=== PATIENT | male | born 2000 ===

== ENCOUNTER 2019-03-28 14:27 | Inpatient (IN) | payer OTHER ==
[~2019-03-28] VITALS: Ht 175 cm; Wt 59.0 kg
[2019-03-28] MEDS ORDERED: TETANUS,DIPTH,PERTUSS P/F (BOOSTRIX) 0.5 ML VIAL IM ONE ×2 (14:42→14:45)
[2019-03-28] MEDS ORDERED: fentaNYL INJECTION 100 MCG/2 ML AMP ONE (14:43)
[2019-03-28] MEDS ORDERED: fentaNYL INJECTION 100 MCG/2 ML AMP IVP STA (14:45)
[2019-03-28 14:56] LABS: BASOPHILS % (AUTO) 0 % (0-10); EOSINOPHILS % (AUTO) 0 % (0-10); HEMATOCRIT 47 % (40-54); HEMOGLOBIN 15.8 G/DL (13.3-17.7); LYMPHOCYTES # (AUTO) 1.8 X 10^3 (1.0-4.0); LYMPHOCYTES % (AUTO) 8 % (12-44); MEAN CORPUSCULAR HEMOGLOBIN 26 PG (25-34); MEAN CORPUSCULAR HGB CONC 34 G/DL (32-36); MEAN CORPUSCULAR VOLUME 77 FL (80-99); MEAN PLATELET VOLUME 11.2 FL (7.4-10.4); MONOCYTES # (AUTO) 1.5 X 10^3 (0.0-1.0); MONOCYTES % (AUTO) 6 % (0-12); NEUTROPHILS # (AUTO) 20.9 X 10^3 (1.8-7.8); NEUTROPHILS % (AUTO) 86 % (42-75); PLATELET COUNT 237 10^3/uL (130-400); RED CELL DISTRIBUTION WIDTH 13.7 % (10.0-14.5); WHITE BLOOD COUNT 24.3 10^3/uL (4.3-11.0)
[2019-03-28] MEDS ORDERED: NS 100 ML (IVPB) BAG IV ONE (15:00)
[2019-03-28] MEDS ORDERED: IOHEXOL 350 MG/ML 100 ML (OMNIPAQUE 350) VIAL IV ONE (15:00)
[2019-03-28] MEDS ORDERED: HOLD METFORMIN - RECEIVED CONTRAST 20 ML VIAL IV SCH (15:00)
[2019-03-28] MEDS ORDERED: ONDANSETRON 4 MG/2 ML (SDV) Z0FRAN ONE (15:01)
[2019-03-28 15:11] LABS: ALANINE AMINOTRANSFERASE 88 U/L (0-55); ALBUMIN 4.9 GM/DL (3.2-4.5); ALKALINE PHOSPHATASE 91 U/L (40-136); BILIRUBIN,TOTAL 0.6 MG/DL (0.1-1.0); BUN/CREATININE RATIO 16; CALCIUM 9.2 MG/DL (8.5-10.1); CARBON DIOXIDE 24 MMOL/L (21-32); CHLORIDE 105 MMOL/L (98-107); CREATININE SERUM 0.92 MG/DL (0.60-1.30); GFR ESTIMATED > 60; GLUCOSE 125 MG/DL (70-105); POTASSIUM 3.6 MMOL/L (3.6-5.0); SODIUM 140 MMOL/L (135-145); TOTAL PROTEIN 7.7 GM/DL (6.4-8.2)
[2019-03-28] MEDS ORDERED: ONDANSETRON 4 MG/2 ML (SDV) Z0FRAN IVP ONE (15:15)
[2019-03-28 15:24] LABS: BAND NEUTROPHILS 0 %; BASOPHILS % (MANUAL) 0 %; EOSINOPHILS % (MANUAL) 0 %; LYMPHOCYTES % (MANUAL) 10 %; MONOCYTES % (MANUAL) 6 %; NEUTROPHILS % (MANUAL) 84 %; RBC MORPH NORMAL
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
[2019-03-28] MEDS ORDERED: morphine INJ 10 MG/ML 1ML (SYR OR VIAL) IVP STA (15:44)
[2019-03-28] MEDS ORDERED: NS IV 1000 ML 1,000 ML IV ONE (15:46)
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
[2019-03-28] MEDS ORDERED: morphine PCA 100 MG/100 ML BAG IV ONE (17:49)
[2019-03-28] MEDS ORDERED: NS W/KCL 20 MEQ/L 1,000 ML IV ONE (17:51)
[2019-03-28 17:54] VITALS: BP 101/54
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
[2019-03-28] MEDS ORDERED: morphine PCA 100 MG/100 ML BAG IV PRN ×2 (18:30→21:00)
[2019-03-28 20:00] VITALS: BP 112/70
[2019-03-28] MEDS ORDERED: NS W/KCL 20 MEQ/L 1,000 ML IV SCH (20:45)
[2019-03-28] MEDS: 1/2 NS W/KCL 20 MEQ/L 1,000 ML IV SCH (20:56)
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
[2019-03-28 21:44] VITALS: BP 116/58
[2019-03-28] MEDS ORDERED: RT-ALBUTEROL SULF 2.5 MG/3 ML PRE-MIX VIAL INH PRN (22:00)
[2019-03-28] MEDS: ACETAMINOPHEN 500 MG TAB (TYLENOL) PO PRN (22:15)
[2019-03-28] MEDS: FAMOTIDINE 20MG/2ML IV (PEPCID) IVP SCH (22:15)
[2019-03-28] MEDS: cefTRIAXone 1,000 MG/SWFI 10 ML IV PUSH IV SCH ×2 (22:16)
[2019-03-29] VITALS (7 sets, daily range): BP systolic 115–136; BP diastolic 61–80
[2019-03-29] MEDS: MUPIROCIN 2% OINT 22 GM (BACTROBAN) TUBE TOP SCH ×3 (00:52→20:46)
[2019-03-29] MEDS: 1/2 NS W/KCL 20 MEQ/L 1,000 ML IV SCH ×3 (00:55→14:11)
[2019-03-29 06:30] LABS: BASOPHILS % (AUTO) 0 % (0-10); EOSINOPHILS % (AUTO) 0 % (0-10); HEMATOCRIT 46 % (40-54); HEMOGLOBIN 15.3 G/DL (13.3-17.7); LYMPHOCYTES # (AUTO) 0.5 X 10^3 (1.0-4.0); LYMPHOCYTES % (AUTO) 4 % (12-44); MEAN CORPUSCULAR HEMOGLOBIN 26 PG (25-34); MEAN CORPUSCULAR HGB CONC 33 G/DL (32-36); MEAN CORPUSCULAR VOLUME 79 FL (80-99); MEAN PLATELET VOLUME 12.2 FL (7.4-10.4); MONOCYTES # (AUTO) 0.3 X 10^3 (0.0-1.0); MONOCYTES % (AUTO) 3 % (0-12); NEUTROPHILS # (AUTO) 10.3 X 10^3 (1.8-7.8); NEUTROPHILS % (AUTO) 93 % (42-75); PLATELET COUNT 157 10^3/uL (130-400); RED CELL DISTRIBUTION WIDTH 13.7 % (10.0-14.5); WHITE BLOOD COUNT 11.1 10^3/uL (4.3-11.0)
[2019-03-29 06:49] LABS: ALANINE AMINOTRANSFERASE 59 U/L (0-55); ALKALINE PHOSPHATASE 53 U/L (40-136); BUN/CREATININE RATIO 15; CALCIUM 8.4 MG/DL (8.5-10.1); CARBON DIOXIDE 19 MMOL/L (21-32); CHLORIDE 106 MMOL/L (98-107); GFR ESTIMATED > 60; GLUCOSE 138 MG/DL (70-105); POTASSIUM 4.4 MMOL/L (3.6-5.0); SODIUM 136 MMOL/L (135-145); TOTAL PROTEIN 6.1 GM/DL (6.4-8.2)
--- NOTE | 2019-03-29 09:09 | Diagnostic Imaging Report ---
Indication: Trauma and pulmonary contusion, followup. Correlation is made with chest radiograph one day earlier. Mid third left clavicle fracture with overriding is again noted. The lungs are clear. No definite pulmonary contusion is seen. No definite pneumothorax is detected. No effusion. Impression: 1. No acute cardiopulmonary process detected. 2. Left clavicle fracture. Dictated by: Dictated on workstation # [id number]
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
[2019-03-29] MEDS: FAMOTIDINE 20MG/2ML IV (PEPCID) IVP SCH ×2 (09:38→20:46)
[2019-03-29] MEDS: ONDANSETRON 4 MG/2 ML (SDV) Z0FRAN IV PRN ×2 (09:55→18:03)
[2019-03-29] MEDS: ACETAMINOPHEN 500 MG TAB (TYLENOL) PO PRN (12:54)
[2019-03-29] MEDS: HYDROcodone/APAP 7.5 MG/325 MG (LORTAB, LORCET PLUS) TABLET PO PRN ×3 (14:07→23:07)
--- NOTE | 2019-03-29 14:52 | Diagnostic Imaging Report ---
INDICATION: Shoulder pain and abdominal pain. TIME OF EXAM: 02:20 p.m. COMPARISON: Comparison is made with prior chest from 03/29/2019. FINDINGS: The heart size is normal. The pulmonary vascularity is unremarkable. The lungs are clear. No infiltrate, effusion or pneumothorax is detected. IMPRESSION: No acute cardiopulmonary process is detected. Dictated by: Dictated on workstation # [id number]
--- NOTE | 2019-03-29 16:13 | Diagnostic Imaging Report ---
Indication: Abdominal pain and nausea. Time of exam 2:22 PM No prior studies are available for comparison. The bowel gas pattern is nonobstructive. No definite free air is seen. No pathologic calcifications are identified. Impression: No acute abnormality is detected. Dictated by: Dictated on workstation # [id number]
[2019-03-29] MEDS ORDERED: fentaNYL INJECTION 100 MCG/2 ML AMP IVP PRN (17:45)
--- NOTE | 2019-03-29 17:55 | NUR ---
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 65ML OF FENTANYL WASTED WITH WENDY Lowe RN
[2019-03-29] MEDS ORDERED: HYDR-34 PO (18:08)
--- NOTE | 2019-03-29 18:09 | Discharge Inst-Surgical ---
D/C Lap Instructions-DENI New, Converted, or Re-Newed RX: RX on Chart Follow Up Appt in 2 weeks Follow up with Dr. Hoffman Activity as tolerated No driving for 24 hours No driving while on pain medications Incentive Spirometry use every 2 hours while awake Regular Diet Symptoms to Report: Fever over 101 degree F, Nausea/Vomiting Infection Signs and Symptoms to report: Increased redness, Foul odor of wound, Increased drainage Bathing instructions: May shower Operative Area Clean/Dry; Keep incision clean/dry If any problems/questions: Contact your physician or go to Emergency Room PETE CHEEMA MD Mar 29, 2019 18:09
[2019-03-29] MEDS: cefTRIAXone 1,000 MG/SWFI 10 ML IV PUSH IV SCH ×2 (20:46)
[2019-03-30] VITALS (15 sets, daily range): BP systolic 107–165; BP diastolic 62–97
[2019-03-30] MEDS: ONDANSETRON 4 MG/2 ML (SDV) Z0FRAN IV PRN ×2 (02:20→13:29)
[2019-03-30] MEDS: HYDROcodone/APAP 7.5 MG/325 MG (LORTAB, LORCET PLUS) TABLET PO PRN ×2 (04:53→08:36)
[2019-03-30 06:15] LABS: BASOPHILS % (AUTO) 0 % (0-10); EOSINOPHILS % (AUTO) 0 % (0-10); HEMATOCRIT 45 % (40-54); HEMOGLOBIN 15.1 G/DL (13.3-17.7); LYMPHOCYTES # (AUTO) 0.4 X 10^3 (1.0-4.0); LYMPHOCYTES % (AUTO) 3 % (12-44); MEAN CORPUSCULAR HEMOGLOBIN 26 PG (25-34); MEAN CORPUSCULAR HGB CONC 33 G/DL (32-36); MEAN CORPUSCULAR VOLUME 78 FL (80-99); MEAN PLATELET VOLUME 11.9 FL (7.4-10.4); MONOCYTES # (AUTO) 0.4 X 10^3 (0.0-1.0); MONOCYTES % (AUTO) 3 % (0-12); NEUTROPHILS # (AUTO) 11.8 X 10^3 (1.8-7.8); NEUTROPHILS % (AUTO) 94 % (42-75); PLATELET COUNT 140 10^3/uL (130-400); RED CELL DISTRIBUTION WIDTH 13.9 % (10.0-14.5); WHITE BLOOD COUNT 12.6 10^3/uL (4.3-11.0)
[2019-03-30 06:45] LABS: ALANINE AMINOTRANSFERASE 16 U/L (0-55); ALBUMIN 3.5 GM/DL (3.2-4.5); ALKALINE PHOSPHATASE 162 U/L (40-136); BILIRUBIN,TOTAL 0.4 MG/DL (0.1-1.0); BUN/CREATININE RATIO 11; CALCIUM 8.9 MG/DL (8.5-10.1); CARBON DIOXIDE 18 MMOL/L (21-32); CHLORIDE 108 MMOL/L (98-107); CREATININE SERUM 0.66 MG/DL (0.60-1.30); GFR ESTIMATED > 60; GLUCOSE 93 MG/DL (70-105); POTASSIUM 3.8 MMOL/L (3.6-5.0); SODIUM 136 MMOL/L (135-145); TOTAL PROTEIN 7.3 GM/DL (6.4-8.2)
[2019-03-30] MEDS ORDERED: FAMOTIDINE 20MG/2ML IV (PEPCID) ONE (08:05)
[2019-03-30] MEDS: FAMOTIDINE 20 MG (PEPCID) TABLET PO SCH ×2 (08:17→21:40)
[2019-03-30] MEDS: MUPIROCIN 2% OINT 22 GM (BACTROBAN) TUBE TOP SCH ×2 (08:17→21:41)
--- NOTE | 2019-03-30 08:44 | NUR ---
DR CHEEMA NOTIFIED OF PATIENT STATING HE IS NAUSEATED "ALL THE TIME NOW". PT ALSO REPORTING PAIN DURING URINATION BUT THAT HE IS ABLE TO URINATE. ORDER RECEIVED FOR CT ABD/PELVIS. PT WAS NOTIFIED OF THIS AND INSTRUCTED TO REMAIN NPO
[2019-03-30 08:51] LABS: BAND NEUTROPHILS 15 %; BASOPHILS % (MANUAL) 0 %; EOSINOPHILS % (MANUAL) 0 %; LYMPHOCYTES % (MANUAL) 2 %; MICROCYTOSIS SLIGHT; MONOCYTES % (MANUAL) 1 %; NEUTROPHILS % (MANUAL) 82 %
[2019-03-30 09:09] LABS: TOXIC GRANULATION/VACUOLAZATIO 1+
[2019-03-30] MEDS ORDERED: HOLD METFORMIN - RECEIVED CONTRAST 20 ML VIAL IV SCH (11:30)
[2019-03-30] MEDS ORDERED: NS 100 ML (IVPB) BAG IV ONE (11:30)
[2019-03-30] MEDS ORDERED: IOHEXOL 350 MG/ML 100 ML (OMNIPAQUE 350) VIAL IV ONE (11:30)
--- NOTE | 2019-03-30 11:59 | Diagnostic Imaging Report ---
PROCEDURE: CT abdomen and pelvis with and without contrast. TECHNIQUE: Precontrast acquisitions were acquired through the abdomen and pelvis. Multiple contiguous axial images were obtained through the abdomen and pelvis after the administration of intravenous contrast. Auto Exposure Controls were utilized during the CT exam to meet ALARA standards for radiation dose reduction. INDICATION: Severe abdominal pain. Correlation is made with recent CT from 03/28/2019. There has been development of small bilateral pleural effusions with some associated bibasilar infiltrates or atelectasis. No focal liver or splenic laceration is seen. There is now a small amount of perihepatic fluid present. Pancreas is unremarkable. No adrenal mass or hematoma is identified. No definite renal injury is seen. Aorta is nonaneurysmal. There is some mild fluid-filled distention to the stomach. There are some mildly prominent small bowel loops which are fluid-filled throughout the abdomen and pelvis as well. Moderate fluid has developed in the pelvis, anterior to the rectum and posterior to the bladder. No gas within the fluid collection is identified. In addition, there appears to be a small amount of free air in the anterior portion of the abdomen. Additional site of free air also identified elsewhere in the abdomen centrally with multiple small gas bubbles present. IMPRESSION: 1. Development of small bilateral pleural effusions with bibasilar infiltrates or atelectasis. 2. Increase in the amount of free fluid within the abdomen and pelvis. In addition, there is free air present. Findings are consistent with perforation of a hollow viscus, perhaps a bowel injury. Exact location of the bowel injury is difficult to determine. Results were discussed with Dr. Correia prior to this dictation. Dictated by: Dictated on workstation # [id number]
--- NOTE | 2019-03-30 12:06 | NUR ---
provided prayer and Communion.
[2019-03-30] MEDS ORDERED: PIPERACILLIN/TAZO 4.5 GM/NS 100 ML IV NR ×2 (12:15)
[2019-03-30] MEDS: LACTATED RINGERS 1,000 ML IV SCH ×2 (13:12→19:48)
[2019-03-30] MEDS ORDERED: LIDOCAINE UROJET 2% GEL 10 ML PKG ONE (13:13)
[2019-03-30] MEDS ORDERED: LACTATED RINGERS 1,000 ML IV PRN ×3 (13:37→15:57)
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
[2019-03-30] MEDS ORDERED: DEXAMETHASONE 10 MG/ML (DECADRON) 1 ML VIAL ONE (14:03)
[2019-03-30] MEDS ORDERED: GLYCOPYRROLATE 0.2 MG/ML (ROBINUL) 2 ML VIAL ONE (14:03)
[2019-03-30] MEDS ORDERED: proPOfol 200 MG/20 ML (DIPRIVAN) VIAL IV ONE (14:03)
[2019-03-30] MEDS ORDERED: LIDOCAINE PF 2% 5 ML (XYLOCAINE) VIAL ONE (14:03)
[2019-03-30] MEDS ORDERED: MIDAZOLAM 2 MG/2 ML (VERSED) VIAL ONE (14:03)
[2019-03-30] MEDS ORDERED: SEVOFLURANE (ULTANE) 15 ML INHAL SOLN ONE ×10 (14:03→16:55)
[2019-03-30] MEDS ORDERED: ONDANSETRON 4 MG/2 ML (SDV) Z0FRAN ONE (14:03)
[2019-03-30] MEDS ORDERED: NEOSTIGMINE 3 MG/3 ML VIAL ONE (14:03)
[2019-03-30] MEDS ORDERED: fentaNYL INJECTION 100 MCG/2 ML AMP ONE ×2 (14:04→16:00)
[2019-03-30] MEDS ORDERED: HEParin (CENTRAL IV FLUSH) 500 UNIT/5 ML SYR ONE (14:09)
[2019-03-30] MEDS ORDERED: BUP/EPI 0.25% 1:200,000 (MARCAINE) 10 ML VIAL IJ ONE (14:10)
--- NOTE | 2019-03-30 14:50 | NUR ---
PT TAKEN OFF FLOOR FOR PROCEDURE WITH OR STAFF.
[2019-03-30] MEDS: LACTATED RINGERS 1,000 ML IV PRN ×2 (14:53→16:25)
[2019-03-30] MEDS ORDERED: ceFAZolin INJECTION 1,000 MG ONE (15:02)
--- NOTE | 2019-03-30 15:03 | Progress Note-Pre Operative ---
Pre-Operative Progress Note H&P Reviewed The H&P was reviewed, patient examined and no changes noted. Date Seen by Provider: Mar 30, 2019 Time Seen by Provider: 15:00 Date H&P Reviewed: Mar 30, 2019 Time H&P Reviewed: 13:30 Pre-Operative Diagnosis: perforated viscus PETE CHEEMA MD Mar 30, 2019 15:03
[2019-03-30] MEDS ORDERED: ONDANSETRON 4 MG/2 ML (SDV) Z0FRAN IVP PRN (16:00)
[2019-03-30] MEDS ORDERED: fentaNYL INJECTION 100 MCG/2 ML AMP IVP ONE (16:00)
[2019-03-30] MEDS ORDERED: MEPERIDINE (DEMEROL) INJ 50 MG/ML IVP ONE (16:00)
[2019-03-30] MEDS ORDERED: ceFAZolin INJECTION 1,000 MG VIAL IV ONE (16:00)
[2019-03-30] MEDS ORDERED: morphine INJ 10 MG/ML 1ML (SYR OR VIAL) IVP ONE (16:00)
[2019-03-30] MEDS ORDERED: BUPIVACAINE 0.5% 30 ML (SENSORCAINE) VIAL ONE (16:27)
[2019-03-30] MEDS ORDERED: ROCURONIUM 10 MG/ML 5 ML SYRINGE IV ONE (16:27)
[2019-03-30] MEDS ORDERED: SUCCINYLCHOLINE INJ 100 MG/5 ML SYR ONE (16:28)
[2019-03-30] MEDS ORDERED: PHENYLEPHRINE 100 MCG/ML 10 ML (ANESTHESIA) SYR ONE (16:36)
--- NOTE | 2019-03-30 16:58 | Progress Note-Post Operative ---
Post-Operative Progess Note Surgeon (s)/Surgical Technologist (s) Surgeon PETE CHEEMA MD Surgical Technologist: kendell beard [employer] TE[employer] Pre-Operative Diagnosis perforated viscus Post-Operative Diagnosis traumatic perforation mid ileum x2. Procedure & Operative Findings Date of Procedure 03/30/19 Procedure Performed/Findings exploratory laparotomy, small bowel resection with anastamosis. right sc central venous cath placement. Anesthesia Type get Estimated Blood Loss Estimated blood loss (mL): 500ml Specimens/Packing Specimens Removed small bowel PETE CHEEMA MD Mar 30, 2019 16:58
--- NOTE | 2019-03-30 17:04 | NUR ---
REPORT GIVEN TO ANNIE MUELLER. PT TO GO TO ICU ROOM 6 1720 PT FAMILY NOTIFIED. ALL PATIENT BELONGINGS SENT UP TO ICU. ORDERED FENTANYL SENT UP BY PHARMACY WAS TAKEN TO ICU AND GIVEN TO ANNIE MUELLER.
--- NOTE | 2019-03-30 18:06 | Diagnostic Imaging Report ---
INDICATION: Central line placement COMPARISON: 03/29/2019 FINDINGS: Single view of the chest demonstrates a right subclavian central venous catheter on the right. The tip is in the right atrium. There is no pneumothorax. NG tube is seen in the stomach. Lungs are clear. The heart is normal. IMPRESSION: Right central venous catheter tip in the right atrium. No pneumothorax. Dictated by: Dictated on workstation # [id number]
[2019-03-30] MEDS ORDERED: fentaNYL INJECTION 5,000 MCG in EMPTY IV BAG (PVC) 1 EA IV SCH (18:15)
[2019-03-30] MEDS: fentaNYL INJECTION 1,000 MCG in NS (IVPB) 80 ML IV SCH (18:30)
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
[2019-03-30] MEDS: PIPERACILLIN/TAZOBACTAM (BULK) 4.5 GM in NS (IVPB) 100 ML IV SCH (20:18)
--- NOTE | 2019-03-30 22:00 | NUR ---
This RN called results of central line to Dr. Correia and approved to utilize.
[2019-03-31] VITALS (13 sets, daily range): BP systolic 132–143; BP diastolic 79–88
[2019-03-31] MEDS: LACTATED RINGERS 1,000 ML IV SCH ×2 (02:30→18:26)
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
[2019-03-31] MEDS: PIPERACILLIN/TAZOBACTAM (BULK) 4.5 GM in NS (IVPB) 100 ML IV SCH ×3 (03:26→18:51)
[2019-03-31 03:44] LABS: MEAN PLATELET VOLUME 11.5 FL (7.4-10.4); RED CELL DISTRIBUTION WIDTH 13.4 % (10.0-14.5); WHITE BLOOD COUNT 12.3 10^3/uL (4.3-11.0)
[2019-03-31 04:19] LABS: ALANINE AMINOTRANSFERASE 33 U/L (0-55); ALKALINE PHOSPHATASE 47 U/L (40-136); BILIRUBIN,TOTAL 0.5 MG/DL (0.1-1.0); BUN/CREATININE RATIO 10; CALCIUM 8.3 MG/DL (8.5-10.1); CARBON DIOXIDE 25 MMOL/L (21-32); CHLORIDE 97 MMOL/L (98-107); CREATININE SERUM 0.67 MG/DL (0.60-1.30); GFR ESTIMATED > 60; GLUCOSE 143 MG/DL (70-105); POTASSIUM 3.9 MMOL/L (3.6-5.0); SODIUM 131 MMOL/L (135-145); TOTAL PROTEIN 5.3 GM/DL (6.4-8.2)
[2019-03-31] MEDS: HYDROcodone/APAP 7.5 MG/325 MG (LORTAB, LORCET PLUS) TABLET PO PRN (07:34)
--- NOTE | 2019-03-31 07:45 | Anesthesia-General Post-Op ---
General Patient Condition Mental Status/LOC: Same as Preop Cardiovascular: Satisfactory Nausea/Vomiting: Absent Respiratory: Satisfactory Pain: Controlled Complications: Absent Post Op Complications Complications None Follow Up Care/Instructions Patient Instructions None needed. Anesthesia/Patient Condition Patient Condition Patient is doing well, no complaints, stable vital signs, no apparent adverse anesthesia problems. No complications reported per nursing. ÓSCAR KING CRNA Mar 31, 2019 07:45
[2019-03-31] MEDS: FAMOTIDINE 20 MG (PEPCID) TABLET PO SCH ×2 (08:10→20:24)
[2019-03-31] MEDS: MUPIROCIN 2% OINT 22 GM (BACTROBAN) TUBE TOP SCH ×2 (09:15→20:24)
--- NOTE | 2019-03-31 09:26 | NUR ---
0745 ASSESSMENT COMPLETE SEE FLOW SHEET, DRESSING CHANGED PT TOLERATED WELL, HYDROCODONE GIVEN FOR TEMP NOTED AT 37.8. PT ASSISTED TO CHAIR AND ENCOURAGED TO USE INCENTIVE SPIROMETRY. FAMILY MEMBER AT BEDSIDE,CALL LIGHT AND OTHER PERSONAL ITEMS WITHIN REACH WILL CONTINUE TO MONITOR.
--- NOTE | 2019-03-31 09:27 | NUR ---
0915 PT TRANSFERRED TO ROOM 408 VIA W/C BY THIS RN ALL PERSONAL ITEMS SENT WITH PT. REPORT GIVEN TO ISABELL VALENCIA.
--- NOTE | 2019-03-31 14:22 | Progress Note ---
Subjective Date Seen by a Provider: Mar 31, 2019 Time Seen by a Provider: 14:00 Subjective/Events-last exam doing well. pain controlled with APPLICATION DEVELOPMENT PROJECT MANAGER. labs within normal range. minimal SS drain output. good urine output. Objective Exam Vital Signs Date Time Temp Pulse Resp B/P (MAP) Pulse Ox O2 Delivery O2 Flow Rate FiO2 03/31/19 13:00 94 03/31/19 12:00 37.9 96 18 132/82 (99) 98 Room Air 03/31/19 10:12 37.3 89 96 03/31/19 10:07 94 Room Air 03/31/19 09:11 37.3 95 16 143/88 (106) 96 Room Air 03/31/19 08:15 97 Room Air 03/31/19 08:15 37.2 03/31/19 07:34 37.8 03/31/19 07:00 85 03/31/19 07:00 87 138/83 (101) 98 Room Air 03/31/19 06:00 86 21 136/86 (103) 97 Room Air 03/31/19 05:00 105 19 140/85 (103) 97 Room Air 03/31/19 04:00 91 15 136/79 (98) 95 Room Air 03/31/19 03:00 88 15 136/87 (103) 97 Room Air 03/31/19 02:00 110 23 139/85 (103) 96 Room Air 03/31/19 01:00 97 03/31/19 01:00 97 30 133/85 (101) 98 Room Air 03/31/19 00:00 100 18 139/84 (102) 96 Room Air 03/31/19 00:00 37.5 03/30/19 23:00 99 16 141/84 (103) 96 Room Air 03/30/19 22:25 20 03/30/19 22:00 99 16 138/84 (102) 97 Room Air 03/30/19 21:00 106 142/81 (101) 95 Room Air 03/30/19 20:21 37.8 107 19 140/91 (107) 96 Room Air 03/30/19 20:13 97 Room Air 03/30/19 20:00 Simple Mask 03/30/19 19:00 110 151/89 (109) 96 Room Air 03/30/19 19:00 110 03/30/19 18:25 97 Room Air 03/30/19 18:20 36.3 18 141/83 (102) 98 Room Air 03/30/19 18:20 Room Air 03/30/19 18:11 Room Air 03/30/19 18:10 18 151/97 (115) 99 Room Air 03/30/19 18:03 OxyMask 3 03/30/19 18:00 18 165/86 (112) 100 OxyMask 6 03/30/19 17:55 OxyMask 6 03/30/19 17:50 18 160/87 (111) 100 OxyMask 6 03/30/19 17:40 OxyMask 6 03/30/19 17:40 18 107/92 (97) 100 OxyMask 6 03/30/19 17:30 18 155/89 (111) 100 OxyMask 6 03/30/19 17:24 OxyMask 6 03/30/19 17:24 36.3 10 142/92 (109) 100 OxyMask 6 I & O 03/31/19 07:00 Intake Total 2360 ml Output Total 2750 ml Balance -390 ml Capillary Refill : Less Than 3 SecondsLess Than 3 Seconds General Appearance: No Apparent Distress HEENT: PERRL/EOMI Neck: Full Range of Motion Respiratory: Chest Non Tender, Lungs Clear, Normal Breath Sounds Cardiovascular: Regular Rate, Rhythm Gastrointestinal: soft, tenderness Extremity: Normal Capillary Refill Neurologic/Psychiatric: Alert, Oriented x3 Skin: Normal Color Lymphatic: No Adenopathy Results Lab Laboratory Tests 03/31/19 03:29: White Blood Count 12.3H, Red Blood Count 5.02, Hemoglobin 13.0L, Hematocrit 39L, Mean Corpuscular Volume 77L, Mean Corpuscular Hemoglobin 26, Mean Corpuscular Hemoglobin Concent 34, Red Cell Distribution Width 13.4, Platelet Count 134, Mean Platelet Volume 11.5H, Sodium Level 131L, Potassium Level 3.9, Chloride Level 97L, Carbon Dioxide Level 25, Anion Gap 9, Blood Urea Nitrogen 7, Creatinine 0.67, Estimat Glomerular Filtration Rate > 60, BUN/Creatinine Ratio 10, Glucose Level 143H, Calcium Level 8.3L, Corrected Calcium 9.1, Total Bilirubin 0.5, Aspartate Amino Transf (AST/SGOT) 32, Alanine Aminotransferase (ALT/SGPT) 33, Alkaline Phosphatase 47, Total Protein 5.3L, Albumin 3.0L Assessment/Plan Assessment/Plan Assess & Plan/Chief Complaint s/p expl lap and small bowel resection secondary trauma. increase ambulation. continue zosyn. continue NGT until bowel fxn. will keep wagner in until tomorrow when ambulating better. Clinical Quality Measures DVT/VTE Risk/Contraindication: Risk Factor Score Per Nursin RFS Level Per Nursing on Admit: 1=Low/No VTE PPX PETE CHEEMA MD Mar 31, 2019 14:22
[2019-03-31] MEDS: fentaNYL INJECTION 1,000 MCG in NS (IVPB) 80 ML IV SCH (15:35)
--- NOTE | 2019-03-31 18:15 | NUR ---
PT AMBULATED AROUND BED TO OTHER SIDE OF ROOM WITH WALKER. ENCOURAGED PT TO SIT UP AND TAKE DEEP BREATHS AND USE INCENTIVE. FAMILY AT SIDE. CALL LIGHT WITHIN REACH.
[2019-04-01] VITALS (7 sets, daily range): BP systolic 124–137; BP diastolic 78–88
[2019-04-01] MEDS: PIPERACILLIN/TAZOBACTAM (BULK) 4.5 GM in NS (IVPB) 100 ML IV SCH ×3 (01:53→18:54)
[2019-04-01] MEDS: LACTATED RINGERS 1,000 ML IV SCH ×6 (01:53→22:29)
[2019-04-01] MEDS: FAMOTIDINE 20 MG (PEPCID) TABLET PO SCH ×2 (12:00→22:29)
[2019-04-01] MEDS: MUPIROCIN 2% OINT 22 GM (BACTROBAN) TUBE TOP SCH ×2 (12:00→22:29)
--- NOTE | 2019-04-01 12:08 | Progress Note ---
Subjective Date Seen by a Provider: Apr 01, 2019 Time Seen by a Provider: 10:00 Subjective/Events-last exam doing well. no bowel fxn yet. pain controlled. minimal ss ERNESTO output. no fever/chills. Objective Exam Vital Signs Date Time Temp Pulse Resp B/P (MAP) Pulse Ox O2 Delivery O2 Flow Rate FiO2 04/01/19 11:43 37.7 93 24 132/78 (96) 94 Room Air 04/01/19 08:05 37.6 86 18 137/88 (104) 97 Room Air 04/01/19 06:48 20 04/01/19 04:00 37.8 86 18 129/79 (96) 97 Room Air 04/01/19 00:04 37.6 93 18 134/82 (99) 95 Room Air 03/31/19 21:00 20 03/31/19 20:00 Room Air 03/31/19 20:00 37.6 88 18 137/84 (101) 95 Room Air 03/31/19 18:27 92 03/31/19 16:00 37.7 87 18 137/80 (99) 97 Room Air 03/31/19 15:35 18 03/31/19 13:00 94 I & O 04/01/19 07:00 Intake Total 1240 ml Output Total 5065 ml Balance -3825 ml Capillary Refill : Less Than 3 SecondsLess Than 3 Seconds General Appearance: No Apparent Distress HEENT: PERRL/EOMI Neck: Full Range of Motion Respiratory: Chest Non Tender, Lungs Clear, Normal Breath Sounds Cardiovascular: Regular Rate, Rhythm Gastrointestinal: soft, tenderness, other (incision clean/dry) Extremity: Normal Capillary Refill Neurologic/Psychiatric: Alert, Oriented x3 Skin: Normal Color Lymphatic: No Adenopathy Results Lab Microbiology 03/30/19 MRSA Screen - Final, Complete MRSA not isolated Assessment/Plan Assessment/Plan Assess & Plan/Chief Complaint s/p expl lap and small bowel resection secondary trauma. increase ambulation. continue zosyn. continue NGT until bowel fxn. d/c wagner. Clinical Quality Measures DVT/VTE Risk/Contraindication: Risk Factor Score Per Nursin RFS Level Per Nursing on Admit: 1=Low/No VTE PPX PETE CHEEMA MD Apr 01, 2019 12:08
--- NOTE | 2019-04-01 14:35 | NUR ---
Anointed by Fr Erik Owen
[2019-04-01] MEDS: fentaNYL INJECTION 1,000 MCG in NS (IVPB) 80 ML IV SCH (15:07)
[2019-04-02] MEDS: ONDANSETRON 4 MG/2 ML (SDV) Z0FRAN IV PRN ×2 (01:42→18:41)
[2019-04-02] MEDS: PIPERACILLIN/TAZOBACTAM (BULK) 4.5 GM in NS (IVPB) 100 ML IV SCH ×3 (02:21→18:35)
[2019-04-02 04:30] VITALS: BP 121/81
[2019-04-02] MEDS: LACTATED RINGERS 1,000 ML IV SCH ×3 (04:47→23:06)
[2019-04-02 08:00] VITALS: BP 128/75
--- NOTE | 2019-04-02 09:10 | NUR ---
DR CHEEMA NOTIFIED BY THIS RN ABOUT PEPCID PO. PT NPO AT THIS TIME. NEW ORDER RECEIVED.
[2019-04-02] MEDS: fentaNYL INJECTION 1,000 MCG in NS (IVPB) 80 ML IV SCH (09:36)
[2019-04-02] MEDS: MUPIROCIN 2% OINT 22 GM (BACTROBAN) TUBE TOP SCH ×2 (09:41→21:31)
[2019-04-02] MEDS: FAMOTIDINE 20MG/2ML IV (PEPCID) IVP SCH ×2 (09:50→21:31)
[2019-04-02 12:00] VITALS: BP 129/80
--- NOTE | 2019-04-02 12:30 | NUR ---
NG REMOVED BY THIS RN PER DR CHEEMA ORDERS, GAUZE DRESSING PLACED ON MIDLINE ABD.
--- NOTE | 2019-04-02 12:33 | Progress Note ---
Subjective Date Seen by a Provider: Apr 02, 2019 Time Seen by a Provider: 12:00 Subjective/Events-last exam doing better. pain better controlled. had large BM today. ambulating better as well. Objective Exam Vital Signs Date Time Temp Pulse Resp B/P (MAP) Pulse Ox O2 Delivery O2 Flow Rate FiO2 04/02/19 08:00 Room Air 04/02/19 08:00 37.2 86 18 128/75 (92) 97 Room Air 04/02/19 07:28 Room Air 04/02/19 07:00 18 04/02/19 04:30 37.0 91 18 121/81 (94) 96 Room Air 04/02/19 00:51 37.0 04/01/19 23:48 37.1 89 21 132/88 (103) 94 Room Air 04/01/19 21:00 20 04/01/19 20:00 Room Air 04/01/19 20:00 37.9 103 18 124/79 (94) 96 Room Air 04/01/19 19:53 18 04/01/19 18:00 36.9 04/01/19 16:00 38.2 103 18 125/78 (94) 97 Room Air I & O 04/02/19 07:00 Intake Total 2360 ml Output Total 4810 ml Balance -2450 ml Capillary Refill : Less Than 3 SecondsLess Than 3 Seconds General Appearance: No Apparent Distress HEENT: PERRL/EOMI Neck: Full Range of Motion Respiratory: Chest Non Tender, Lungs Clear, Normal Breath Sounds Cardiovascular: Regular Rate, Rhythm Gastrointestinal: soft, tenderness, other (inc clean/dry) Extremity: Normal Capillary Refill Neurologic/Psychiatric: Alert, Oriented x3 Skin: Normal Color Lymphatic: No Adenopathy Results Lab Microbiology 03/30/19 MRSA Screen - Final, Complete MRSA not isolated Assessment/Plan Assessment/Plan Assess & Plan/Chief Complaint s/p expl lap and small bowel resection secondary trauma. increase ambulation. continue zosyn. d/c NGT and start clears then advance as tolerated. Clinical Quality Measures DVT/VTE Risk/Contraindication: Risk Factor Score Per Nursin RFS Level Per Nursing on Admit: 1=Low/No VTE PPX PETE CHEEMA MD Apr 02, 2019 12:33
--- NOTE | 2019-04-02 13:00 | NUR ---
Received report from ANNIE Stern. Agree with previous assessment.
[2019-04-02 16:00] VITALS: BP 123/75
[2019-04-02 23:28] VITALS: BP 126/74
[2019-04-03] MEDS: LACTATED RINGERS 1,000 ML IV SCH ×4 (00:40→22:02)
[2019-04-03] MEDS: PIPERACILLIN/TAZOBACTAM (BULK) 4.5 GM in NS (IVPB) 100 ML IV SCH ×3 (01:26→18:36)
[2019-04-03] MEDS: ACETAMINOPHEN 500 MG TAB (TYLENOL) PO PRN (06:20)
[2019-04-03 07:40] VITALS: BP 134/77
[2019-04-03] MEDS: fentaNYL INJECTION 1,000 MCG in NS (IVPB) 80 ML IV SCH (07:53)
--- NOTE | 2019-04-03 08:00 | NUR ---
DIMENSIONAL ENGINEER bag changed. Wasted 7.5 mLs with ANNIE Woodall.
[2019-04-03] MEDS: MUPIROCIN 2% OINT 22 GM (BACTROBAN) TUBE TOP SCH ×2 (08:10→21:09)
[2019-04-03] MEDS: FAMOTIDINE 20MG/2ML IV (PEPCID) IVP SCH ×2 (08:10→21:07)
--- NOTE | 2019-04-03 08:17 | Progress Note - Surgery ---
CLEVELAND MARTINEZ,MED STUDENT 04/03/19 0817: Subjective Date Seen by a Provider: Apr 03, 2019 Time Seen by a Provider: 07:45 Subjective/Events-last exam PT upright in chair accompanied by family member. Complains of continued abdominal pain around incision and diffusely, but thinks the pain is improving. He reports ambulating around the hospital. Tolerating advanced diet. Denies nausea, vomiting, or any bowel movements. No new complaints at this time. Objective Exam Vital Signs Date Time Temp Pulse Resp B/P (MAP) Pulse Ox O2 Delivery O2 Flow Rate FiO2 04/03/19 05:23 18 04/02/19 23:28 37.4 90 18 126/74 (91) 98 Room Air 04/02/19 20:00 Room Air 04/02/19 18:08 21 04/02/19 17:58 Room Air 04/02/19 16:00 37.4 87 18 123/75 (91) 97 Room Air 04/02/19 12:00 37.9 88 18 129/80 (96) 98 Room Air I & O 04/03/19 07:00 Intake Total 3800 ml Output Total 1170 ml Balance 2630 ml Capillary Refill : Less Than 3 SecondsLess Than 3 Seconds General Appearance: No Apparent Distress, WD/WN HEENT: PERRL/EOMI; No Photophobia, No Scleral Icterus (L), No Scleral Icterus (R) Neck: Normal Inspection Respiratory: Chest Non Tender, Lungs Clear, Normal Breath Sounds, No Accessory Muscle Use, No Respiratory Distress Cardiovascular: Regular Rate, Rhythm, Normal Peripheral Pulses Peripheral Pulses: 2+ Dorsalis Pedis (R), 2+ Left Dors-Pedis (L), 2+ Radial Pulses (R), 2+ Radial Pulses (L) Gastrointestinal: soft, tenderness (incisional and diffuse ), other (inc clean/dry) Extremity: Normal Capillary Refill, No Pedal Edema Neurologic/Psychiatric: Alert, Oriented x3 Skin: Normal Color, Warm/Dry Lymphatic: No Adenopathy (supra/infraclavicular, cervical ) Results Lab Microbiology 03/30/19 MRSA Screen - Final, Complete MRSA not isolated Assessment/Plan Assessment/Plan Assessment/Plan s/p expl lap and small bowel resection secondary trauma. Recommend advancing diet once patient has had a bowel movement. Continue ambulation. Clinical Quality Measures DVT/VTE Risk/Contraindication: Risk Factor Score Per Nursin RFS Level Per Nursing on Admit: 1=Low/No VTE PPX RICK WRIGHT DO 04/03/19 1233: Subjective Time Seen by a Provider: 10:28 Subjective/Events-last exam Pt seen and examined, states his pain is better and he did have a BM yesterday and small one today. He is walking, but nurse states he is using the X RAY DEVELOPER often. Objective Exam Gastrointestinal: other (inc clean/dry, ERNESTO drains with serous fluid) Assessment/Plan Assessment/Plan Assessment/Plan Hyponatremia S/P SBR IV fluids to help bring up sodium, will stop fentanyl X RAY DEVELOPER and start pt on Tylenol, Toradol and oral pain meds if first two don't work. Increase diet to soft. Encourage IS use and ambulation. Supervisory-Addendum Brief Verification & Attestation Participated in pt care: history, MDM, physical Personally performed: exam, history, MDM Care discussed with: Medical Student Procedures: n/a Verification and Attestation of Medical Student E/M Service A medical student performed and documented this service in my presence. I reviewed and verified all information documented by the medical student and made modifications to such information, when appropriate. I personally performed the physical exam and medical decision making. Rick Wright, Apr 03, 2019,12:33 CLEVELAND MARTINEZ,MED STUDENT Apr 03, 2019 08:17 RICK WRIGHT DO Apr 03, 2019 12:33
[2019-04-03] MEDS: KETOROLAC 30 MG/ML VIAL IVP SCH ×2 (11:43→16:49)
[2019-04-03] MEDS: ACETAMINOPHEN 500 MG TAB (TYLENOL) PO SCH ×2 (11:43→18:36)
--- NOTE | 2019-04-03 13:30 | NUR ---
CASTING REPAIRER discontinued. Wasted 77 mLs with ANNIE Woodall.
[2019-04-03 15:14] VITALS: BP 134/77
[2019-04-03 20:00] VITALS: BP 107/66
[2019-04-03] MEDS: HYDROcodone/APAP 7.5 MG/325 MG (LORTAB, LORCET PLUS) TABLET PO PRN (20:13)
[2019-04-04] VITALS: BP 110/57
[2019-04-04] MEDS: KETOROLAC 30 MG/ML VIAL IVP SCH ×4 (00:23→17:54)
[2019-04-04] MEDS: PIPERACILLIN/TAZOBACTAM (BULK) 4.5 GM in NS (IVPB) 100 ML IV SCH ×2 (02:50→10:37)
[2019-04-04] MEDS: ACETAMINOPHEN 500 MG TAB (TYLENOL) PO SCH ×2 (02:52→12:14)
[2019-04-04] MEDS: LACTATED RINGERS 1,000 ML IV SCH ×2 (07:21→09:32)
[2019-04-04] MEDS: FAMOTIDINE 20MG/2ML IV (PEPCID) IVP SCH (08:01)
[2019-04-04] MEDS: MUPIROCIN 2% OINT 22 GM (BACTROBAN) TUBE TOP SCH (08:01)
[2019-04-04 08:15] VITALS: BP 125/76
[2019-04-04] MEDS: HYDROcodone/APAP 7.5 MG/325 MG (LORTAB, LORCET PLUS) TABLET PO PRN (08:30)
--- NOTE | 2019-04-04 10:57 | Progress Note - Surgery ---
Subjective Date Seen by a Provider: Apr 04, 2019 Time Seen by a Provider: 07:45 Subjective/Events-last exam Pt states he is feeling well today and think he is ready to go home. Complains of continued incisional abdominal pain and new onset back pain but thinks it is related to the mattress. Otherwise pain is well controlled with tylenol. Pt has been ambulating the floor regularly and using incentive spirometry as directed. ERNESTO drains contain less than 25mLs. Pt tolerating soft diet. Had one bowel movement at 6am and thinks it was black but is not sure. Accompanied by family member in room. Objective Exam Vital Signs Date Time Temp Pulse Resp B/P (MAP) Pulse Ox O2 Delivery O2 Flow Rate FiO2 04/04/19 08:15 37.6 88 20 125/76 (92) 98 Room Air 04/04/19 08:10 Room Air 04/04/19 07:28 94 Room Air 04/04/19 00:00 37.2 66 18 110/57 (74) 97 Room Air 04/03/19 20:00 Room Air 04/03/19 20:00 37.1 81 18 107/66 (80) 100 Room Air 04/03/19 19:41 Room Air 04/03/19 15:14 37.2 94 96 I & O 04/04/19 07:00 Intake Total 2410 ml Output Total 355 ml Balance 2055 ml Capillary Refill : Less Than 3 SecondsLess Than 3 Seconds General Appearance: No Apparent Distress, WD/WN HEENT: PERRL/EOMI, Moist Mucous Membranes; No Photophobia, No Scleral Icterus (L), No Scleral Icterus (R) Neck: Normal Inspection, Non Tender, Supple Respiratory: Chest Non Tender, Lungs Clear, Normal Breath Sounds, No Accessory Muscle Use, No Respiratory Distress Cardiovascular: Regular Rate, Rhythm, Normal Peripheral Pulses Peripheral Pulses: 2+ Dorsalis Pedis (R), 2+ Left Dors-Pedis (L), 2+ Radial Pulses (R), 2+ Radial Pulses (L) Gastrointestinal: soft; No guarding, No rebound; tenderness (incisional ), other (bandage clean/dry, ERNESTO drains contain serous fluid) Extremity: Normal Capillary Refill, No Calf Tenderness, No Pedal Edema Neurologic/Psychiatric: Alert, Oriented x3 Skin: Normal Color, Warm/Dry Lymphatic: No Adenopathy (supra/infraclavicular, cervical ) Results Lab Microbiology 03/30/19 MRSA Screen - Final, Complete MRSA not isolated Assessment/Plan Assessment/Plan Assessment/Plan S/P SBR Will dc IV and dc Home Clinical Quality Measures DVT/VTE Risk/Contraindication: Risk Factor Score Per Nursin RFS Level Per Nursing on Admit: 1=Low/No VTE PPX KARL SIMENTAL DO Apr 04, 2019 10:57
== END 2019-04-04 18:00 | disposition home or self-care (01) | DRG 958 ==
LOC: ER 14:27 → OBSVTOIN 16:35 → INTOOBSV 16:35 → UNDOADMOB 16:35 → 4TH 16:35 → ICU 03-30 18:46 → 4TH 03-31 09:09 → UNDODISIN 04-04 18:00
PROVIDERS: ADMIT Surgery; ATTEND Surgery
PROC: 0DB80ZZ Excision of Small Intestine, Open Approach (ICD-10-PCS; principal; 2019-03-30 15:05)
DX: S36.438A Laceration of other part of small intestine, initial encounter (principal); S27.0XXA Traumatic pneumothorax, initial encounter; S27.322A Contusion of lung, bilateral, initial encounter; S42.022A Displaced fracture of shaft of left clavicle, initial encounter for closed fracture; E87.1 Hypo-osmolality and hyponatremia; S00.83XA Contusion of other part of head, initial encounter; S40.012A Contusion of left shoulder, initial encounter; S30.1XXA Contusion of abdominal wall, initial encounter; S80.211A Abrasion, right knee, initial encounter; S80.212A Abrasion, left knee, initial encounter; S30.810A Abrasion of lower back and pelvis, initial encounter; V89.0XXA Person injured in unspecified motor-vehicle accident, nontraffic, initial encounter; Z23 Encounter for immunization
CPT/HCPCS: 36415; 70450; 71045; 71046; 71260; 72125; 72170; 73030; 74018; 74177; 74178; 80053; 80320; 85007; 85025; 85027; 87081; 88307; 90471; 90715; 94664; 94760; 96361; 96374; 96375

== ENCOUNTER 2019-04-09 16:59 | Emergency (ER) | payer OTHER ==
[~2019-04-09] VITALS: Ht 155 cm; Wt 59.1 kg
[~2019-04-09 16:59] MED LIST: HYDR-34 PO
--- NOTE | 2019-04-09 17:52 | NUR ---
IV placed at this time, labs drawn, pt graham well
[2019-04-09] MEDS ORDERED: KETOROLAC 30 MG/ML VIAL IVP STA (17:53)
[2019-04-09] MEDS ORDERED: NS IV 1000 ML 1,000 ML IV ONE (17:53)
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
[2019-04-09 18:06] LABS: BASOPHILS % (AUTO) 0 % (0-10); EOSINOPHILS # (AUTO) 0.2 10^3/uL (0.0-0.3); EOSINOPHILS % (AUTO) 3 % (0-10); HEMATOCRIT 37 % (40-54); HEMOGLOBIN 12.2 G/DL (13.3-17.7); LYMPHOCYTES # (AUTO) 0.9 X 10^3 (1.0-4.0); LYMPHOCYTES % (AUTO) 11 % (12-44); MEAN CORPUSCULAR HEMOGLOBIN 26 PG (25-34); MEAN CORPUSCULAR HGB CONC 33 G/DL (32-36); MEAN CORPUSCULAR VOLUME 79 FL (80-99); MEAN PLATELET VOLUME 9.5 FL (7.4-10.4); MONOCYTES # (AUTO) 0.7 X 10^3 (0.0-1.0); MONOCYTES % (AUTO) 9 % (0-12); NEUTROPHILS % (AUTO) 77 % (42-75); PLATELET COUNT 471 10^3/uL (130-400); RED CELL DISTRIBUTION WIDTH 13.5 % (10.0-14.5); WHITE BLOOD COUNT 7.7 10^3/uL (4.3-11.0)
[2019-04-09 18:08] LABS: BILIRUBIN,URINE NEGATIVE (NEGATIVE); CLARITY,URINE CLEAR; COLOR,URINE YELLOW; GLUCOSE, URINE (UA) NEGATIVE (NEGATIVE); KETONES,URINE NEGATIVE (NEGATIVE); LEUKOCYTE ESTERASE ,URINE NEGATIVE (NEGATIVE); NITRITE,URINE NEGATIVE (NEGATIVE); PH,URINE 6 (5-9); PROTEIN,URINE NEGATIVE (NEGATIVE); UROBILINOGEN,URINE NORMAL (NORMAL)
[2019-04-09] MEDS ORDERED: NS 100 ML (IVPB) BAG IV ONE (18:15)
[2019-04-09] MEDS ORDERED: HOLD METFORMIN - RECEIVED CONTRAST 20 ML VIAL IV SCH (18:15)
[2019-04-09] MEDS ORDERED: IOHEXOL 350 MG/ML 100 ML (OMNIPAQUE 350) VIAL IV ONE (18:15)
[2019-04-09 18:18] LABS: BACTERIA,URINE NEGATIVE /HPF; SQUAMOUS EPITHELIAL CELL,UR RARE /HPF
[2019-04-09 18:20] LABS: ALANINE AMINOTRANSFERASE 44 U/L (0-55); ALBUMIN 3.6 GM/DL (3.2-4.5); ALKALINE PHOSPHATASE 114 U/L (40-136); BILIRUBIN,TOTAL 0.4 MG/DL (0.1-1.0); BUN/CREATININE RATIO 13; CALCIUM 8.7 MG/DL (8.5-10.1); CARBON DIOXIDE 29 MMOL/L (21-32); CHLORIDE 96 MMOL/L (98-107); CREATININE SERUM 0.72 MG/DL (0.60-1.30); GFR ESTIMATED > 60; GLUCOSE 98 MG/DL (70-105); POTASSIUM 3.9 MMOL/L (3.6-5.0); SODIUM 136 MMOL/L (135-145); TOTAL PROTEIN 6.8 GM/DL (6.4-8.2)
--- NOTE | 2019-04-09 18:35 | NUR ---
pt back to ED room from radiology, pt shows no s/s of distress, pt lying quietly in bed visiting with family at bedside, vs assessed and stable at this time, will continue to monitor
--- NOTE | 2019-04-09 18:56 | Diagnostic Imaging Report ---
INDICATION: History of bowel resection, postop about 10 days ago, with concern for infection. EXAMINATION: CT of the abdomen and pelvis obtained with IV contrast bolus and compared to 03/30/2019. FINDINGS: The visualized portions of the lung bases show dependent atelectatic change. There is no significant pleural fluid collection. There is no significant free intraperitoneal air. The liver shows no focal lesions. Gallbladder appears unremarkable. The spleen, adrenals, and pancreas appear normal. The kidneys bilaterally appear unremarkable. There is no retroperitoneal mass or adenopathy. There are surgical drains in place. There is diffuse distention of large and small bowel loops which may be secondary to postoperative ileus. There appears to be an anastomosis in the right lower quadrant. There is a question of a small irregular collection just above and posterior to the bladder measuring about 3 cm in diameter. Early abscess formation is not excluded. This area is not in a location which can be drained. This is in the same location as the large fluid collection was present in the pelvis on 03/30/2019. IMPRESSION: Postoperative changes with surgical drains in place. There is no free fluid. In the site of previous large collection in the pelvis seen on 03/30/2019, there is a minimal area of residual fluid measuring about 3 cm. This is not in a drainable location. There is mild distention of large and small bowel loops which may represent ileus. There is a surgical anastomosis in the right lower quadrant. There is some bibasilar atelectasis. Dictated by: Dictated on workstation # [id number]
[2019-04-09] MEDS ORDERED: CIPR500T4 PO ×2 (19:37→19:47)
[2019-04-09] MEDS ORDERED: METR-145 PO ×2 (19:37→19:47)
[2019-04-09] MEDS ORDERED: LEVOFLOXACIN 500 MG TAB (LEVAQUIN) PO ONE (19:45)
[2019-04-09] MEDS ORDERED: metroNIDAZOLE 500 MG (FLAGYL) TAB PO ONE (19:45)
== END 2019-04-09 20:05 | disposition home or self-care (01) ==
LOC: EDUNIT# 16:59 → ER 17:00
DX: L03.319 Cellulitis of trunk, unspecified (principal); L02.219 Cutaneous abscess of trunk, unspecified; Z98.890 Other specified postprocedural states; Z87.828 Personal history of other (healed) physical injury and trauma
CPT/HCPCS: 36415; 74177; 80053; 81000; 85025; 87070; 87077; 87106; 87186; 87205

== ENCOUNTER 2019-04-24 13:10 | Emergency (ER) | payer OTHER ==
[~2019-04-24] VITALS: Ht 167 cm; Wt 52.0 kg
[~2019-04-24 13:10] MED LIST changes: +CIPR500T4 PO; +METR-145 PO
[2019-04-24] MEDS ORDERED: CEPH500T PO (13:56)
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
== END 2019-04-24 14:09 | disposition home or self-care (01) ==
LOC: EDUNIT# 13:10 → ER 13:11
DX: T81.30XA Disruption of wound, unspecified, initial encounter (principal)
CPT/HCPCS: 99282

== ENCOUNTER 2021-12-29 10:51 | Emergency (ER) | payer BC, OTHER ==
[~2021-12-29] VITALS: Ht 167 cm; Wt 58.9 kg
[~2021-12-29 10:51] MED LIST changes: +CEPH500T PO; -CIPR500T4 PO; +CIPR500T5 PO
[2021-12-29 11:30] LABS: BASOPHILS # (AUTO) 0.1 10^3/uL (0.0-0.1); BASOPHILS % (AUTO) 1 % (0-10); EOSINOPHILS # (AUTO) 0.1 10^3/uL (0.0-0.3); EOSINOPHILS % (AUTO) 1 % (0-10); HEMATOCRIT 50 % (40-54); HEMOGLOBIN 16.3 g/dL (13.3-17.7); LYMPHOCYTES # (AUTO) 1.3 10^3/uL (1.0-4.0); LYMPHOCYTES % (AUTO) 13 % (12-44); MEAN CORPUSCULAR HEMOGLOBIN 26 pg (25-34); MEAN CORPUSCULAR HGB CONC 33 g/dL (32-36); MEAN CORPUSCULAR VOLUME 80 fL (80-99); MEAN PLATELET VOLUME 11.2 fL (9.0-12.2); MONOCYTES # (AUTO) 0.4 10^3/uL (0.0-1.0); MONOCYTES % (AUTO) 4 % (0-12); NEUTROPHILS # (AUTO) 8.5 10^3/uL (1.8-7.8); NEUTROPHILS % (AUTO) 82 % (42-75); PLATELET COUNT 201 10^3/uL (130-400); WHITE BLOOD COUNT 10.4 10^3/uL (4.3-11.0)
[2021-12-29] MEDS ORDERED: NS IV 1000 ML 1,000 ML IV SCH (11:30)
[2021-12-29 11:39] LABS: ALBUMIN 5.1 GM/DL (3.2-4.5); CHLORIDE 100 MMOL/L (98-107); POTASSIUM 4.3 MMOL/L (3.6-5.0); SODIUM 138 MMOL/L (135-145)
[2021-12-29 11:40] LABS: INR 1.1 (0.8-1.4); PROTHROMBIN TIME PATIENT 14.7 SEC (12.2-14.7)
[2021-12-29 11:41] LABS: CALCIUM 9.7 MG/DL (8.5-10.1)
[2021-12-29 11:42] LABS: GLUCOSE 129 MG/DL (70-105); TOTAL PROTEIN 8.3 GM/DL (6.4-8.2)
[2021-12-29 11:43] LABS: CARBON DIOXIDE 24 MMOL/L (21-32)
[2021-12-29 11:44] LABS: BILIRUBIN,TOTAL 0.5 MG/DL (0.1-1.0)
[2021-12-29] MEDS ORDERED: NS IV 1000 ML 1,000 ML IV STA (11:44)
[2021-12-29 11:45] LABS: ALKALINE PHOSPHATASE 78 U/L (40-136); CREATININE SERUM 1.11 MG/DL (0.60-1.30); GFR ESTIMATED 96
[2021-12-29] MEDS ORDERED: ONDANSETRON 4 MG/2 ML (SDV) Z0FRAN IVP ONE ×2 (11:45→14:15)
[2021-12-29] MEDS ORDERED: HYDROmorphone 2 MG/ML VIAL (DILAUDID) IV ONE ×2 (11:45→14:15)
[2021-12-29 11:46] LABS: BUN/CREATININE RATIO 10
--- NOTE | 2021-12-29 11:47 | ED GI ---
General Chief Complaint: Abdominal/GI Problems Stated Complaint: ABD PAIN Nursing Triage Note: PT PRESENTS TO ED WITH COMPLAINTS OF ABDOMINAL PAIN AND VOMITING STARTING AROUND 0500 THIS AM. Source of Information: Patient Exam Limitations: No Limitations History of Present Illness Date Seen by Provider: Dec 29, 2021 Time Seen by Provider: 11:45 Initial Comments This is a 21-year-old male that presents to the emergency room for evaluation of left-sided abdominal pain and nausea that started this morning at around 4 AM. He states that he has had symptoms like this in the past since having surgery on his abdomen 4 years ago but then normally the symptoms resolved. Today they have been persistent and he currently rates his pain as a sharp 10 out of 10. Timing/Duration: 4-6 Hours Severity/Quality: Severe, Sharp Allergies and Home Medications Allergies Coded Allergies: No Known Drug Allergies (Unverified , 03/28/19) Patient Home Medication List Home Medication List Reviewed: Yes Cephalexin (Cephalexin) 500 Mg Tablet, 500 MG PO TID Prescribed by: RANDOLPH DYKES on 04/24/19 9396 Review of Systems Review of Systems Constitutional: malaise EENTM: No Symptoms Reported Respiratory: No Symptoms Reported Cardiovascular: No Symptoms Reported Gastrointestinal: Abdominal Pain Genitourinary: No Symptoms Reported Musculoskeletal: no symptoms reported Skin: no symptoms reported Psychiatric/Neurological: No Symptoms Reported Hematologic/Lymphatic: No Symptoms Reported Past Jhbfglm-Iyudna-Aklapi Hx Patient Social History Tobacco Use?: No Substance use?: No Alcohol Use?: No Pt feels they are or have been: No Immunizations Up To Date Tetanus Booster (TDap): Less than 5yrs PED Vaccines UTD: Yes Seasonal Allergies Seasonal Allergies: No Past Medical History Surgery/Hospitalization HX: PMH:ABDOMINAL SX- BOWEL PERF Surgeries: Yes Abdominal Respiratory: Yes (small left apical pneumothorax) Cardiac: No Neurological: No Genitourinary: No Gastrointestinal: No Musculoskeletal: Yes (left clavicular fracture) Endocrine: No HEENT: No Cancer: No Psychosocial: No Integumentary: No Family Medical History No Pertinent Family Hx Physical Exam Vital Signs Vital Signs - First Documented 12/29/21 11:15 Temp 36.3 Pulse 61 Resp 18 B/P (MAP) 93/63 (73) Pulse Ox 100 Capillary Refill : Less Than 3 Seconds Height/Weight/BMI Height: '" Weight: lbs. oz. kg; 21.00 BMI Method: General Appearance: WD/WN, no apparent distress HEENT: PERRL/EOMI, pharynx normal Neck: non-tender Respiratory: chest non-tender, lungs clear Cardiovascular: regular rate, rhythm, no edema Gastrointestinal: No guarding, No rebound; tenderness (Tenderness to palpation along the left lateral abdomen) Extremities: normal range of motion, non-tender Back: normal inspection Neurologic/Psychiatric: patient sitter II-XII nml as tested, oriented x 3 Skin: normal color, warm/dry Lymphatic: no adenopathy Focused Exam Lactate Level 12/29/21 11:57: Lactic Acid Level 2.00 Lactic Acid Level Laboratory Tests Test 12/29/21 11:57 Lactic Acid Level 2.00 MMOL/L (0.50-2.00) Progress/Results/Core Measures Results/Orders Lab Results Laboratory Tests Test 12/29/21 11:23 12/29/21 11:57 Range/Units White Blood Count 10.4 4.3-11.0 10^3/uL Red Blood Count 6.22 H 4.30-5.52 10^6/uL Hemoglobin 16.3 13.3-17.7 g/dL Hematocrit 50 40-54 % Mean Corpuscular Volume 80 80-99 fL Mean Corpuscular Hemoglobin 26 25-34 pg Mean Corpuscular Hemoglobin Concent 33 32-36 g/dL Red Cell Distribution Width 13.3 10.0-14.5 % Platelet Count 201 130-400 10^3/uL Mean Platelet Volume 11.2 9.0-12.2 fL Immature Granulocyte % (Auto) 0 % Neutrophils (%) (Auto) 82 H 42-75 % Lymphocytes (%) (Auto) 13 12-44 % Monocytes (%) (Auto) 4 0-12 % Eosinophils (%) (Auto) 1 0-10 % Basophils (%) (Auto) 1 0-10 % Neutrophils # (Auto) 8.5 H 1.8-7.8 10^3/uL Lymphocytes # (Auto) 1.3 1.0-4.0 10^3/uL Monocytes # (Auto) 0.4 0.0-1.0 10^3/uL Eosinophils # (Auto) 0.1 0.0-0.3 10^3/uL Basophils # (Auto) 0.1 0.0-0.1 10^3/uL Immature Granulocyte # (Auto) 0.0 0.0-0.1 10^3/uL Prothrombin Time 14.7 12.2-14.7 SEC INR Comment 1.1 0.8-1.4 Activated Partial Thromboplast Time 25 24-35 SEC Sodium Level 138 135-145 MMOL/L Potassium Level 4.3 3.6-5.0 MMOL/L Chloride Level 100 98-107 MMOL/L Carbon Dioxide Level 24 21-32 MMOL/L Anion Gap 14 5-14 MMOL/L Blood Urea Nitrogen 11 7-18 MG/DL Creatinine 1.11 0.60-1.30 MG/DL Estimat Glomerular Filtration Rate 96 BUN/Creatinine Ratio 10 Glucose Level 129 H 70-105 MG/DL Calcium Level 9.7 8.5-10.1 MG/DL Corrected Calcium 8.5-10.1 MG/DL Total Bilirubin 0.5 0.1-1.0 MG/DL Aspartate Amino Transf (AST/SGOT) 12 5-34 U/L Alanine Aminotransferase (ALT/SGPT) 20 0-55 U/L Alkaline Phosphatase 78 40-136 U/L Total Protein 8.3 H 6.4-8.2 GM/DL Albumin 5.1 H 3.2-4.5 GM/DL Lipase 20 8-78 U/L Lactic Acid Level 2.00 0.50-2.00 MMOL/L My Orders Orders - AGUSTIN CRANE Ed Iv/Invasive Line Start (12/29/21 11:23) Cbc With Automated Diff (12/29/21 11:23) Comprehensive Metabolic Panel (12/29/21 11:23) Lipase (12/29/21 11:23) Blood Culture (12/29/21 11:23) Protime With Inr (12/29/21 11:23) Partial Thromboplastin Time (12/29/21 11:23) Chest 1 View, Ap/Pa Only (12/29/21 11:23) Ed Iv/Invasive Line Start (12/29/21 11:23) Vital Signs Adult Sepsis Patie Q15M (12/29/21 11:23) O2 (12/29/21 11:23) Remove Rings In Anticipation O (12/29/21 11:23) Lactic Acid Analyzer (12/29/21 11:23) Ns Iv 1000 Ml (Sodium Chloride 0.9%) (12/29/21 11:30) Ct Abdomen W (12/29/21 11:43) Hydromorphone Injection (Dilaudid Inject (12/29/21 11:45) Ondansetron Injection (Zofran Injectio (12/29/21 11:45) Ns Iv 1000 Ml (Sodium Chloride 0.9%) (12/29/21 11:44) Iohexol Injection (Omnipaque 350 Mg/Ml 1 (12/29/21 12:15) Received Contrast (Hold Metformin- Contr (12/29/21 12:15) Ns (Ivpb) (Sodium Chloride 0.9% Ivpb Bag (12/29/21 12:15) Medications Given in ED Current Medications Medications Dose Ordered Sig/Lynn Route Start Time Stop Time Status Last Admin Dose Admin Hydromorphone HCl 0.5 mg ONCE ONCE IV 12/29/21 11:45 12/29/21 11:46 DC 12/29/21 11:50 0.5 MG Iohexol 100 ml ONCE ONCE IV 12/29/21 12:15 12/29/21 12:16 DC 12/29/21 12:05 100 ML Ondansetron HCl 4 mg ONCE ONCE IVP 12/29/21 11:45 12/29/21 11:46 DC 12/29/21 11:51 4 MG Sodium Chloride 100 ml ONCE ONCE IV 12/29/21 12:15 12/29/21 12:16 DC 12/29/21 12:06 80 ML Vital Signs/I&O 12/29/21 11:15 Temp 36.3 Pulse 61 Resp 18 B/P (MAP) 93/63 (73) Pulse Ox 100 Blood Pressure Mean: 73 Departure Communication (Admissions) Patient is afebrile, nontoxic and in no distress. He does feel markedly improved after intervention in the emergency room. Lab work is reassuring. CT shows likely small bowel obstruction. From the patient's history it sounds like he likely has issues with this intermittently. I had a lengthy discussion with him about his diet and the need for clear liquid diet at this point as well as symptomatic relief. He is not having intractable vomiting and his vital signs are stable. I spoke with the general surgeon on-call and he agrees that we can try outpatient therapy. The patient tells me that he understands to return here if he has any severe changes or worsening of symptoms. Impression Primary Impression: Bowel obstruction Disposition: 01 HOME, SELF-CARE Condition: Stable Departure-Patient Inst. Decision time for Depature: 14:04 Referrals: NO,LOCAL PHYSICIAN (PCP/Family) Primary Care Physician Patient Instructions: Small Bowel Obstruction Add. Discharge Instructions: Please stick to a clear liquid diet until your symptoms resolve as we discussed. It is very importantly you are up walking and chewing gum as often as possible over the next several days. If you have any severe changes or worsening of symptoms please return to the emergency room. All discharge instructions reviewed with patient and/or family. Voiced understanding. Scripts Ondansetron (Ondansetron Odt) 4 Mg Tab.rapdis 4 MG PO TID for Nausea, #14 TAB Prov: AGUSTIN CRANE 12/29/21 Hydrocodone/Acetaminophen (Hydrocodone-Acetamin 5-325 mg) 5 Mg-325 Mg Tablet 1 TAB PO Q4H PRN for PAIN-MODERATE (5-7) for 7 Days, #20 TAB Prov: AGUSTIN CRANE 12/29/21 AGUSTIN CRANE Dec 29, 2021 11:47
[2021-12-29 11:48] LABS: ALANINE AMINOTRANSFERASE 20 U/L (0-55)
[2021-12-29 11:49] LABS: LIPASE 20 U/L (8-78)
[2021-12-29] MEDS ORDERED: HOLD METFORMIN - RECEIVED CONTRAST 20 ML VIAL IV SCH (12:15)
[2021-12-29] MEDS ORDERED: NS 100 ML (IVPB) BAG IV ONE (12:15)
[2021-12-29] MEDS ORDERED: IOHEXOL 350 MG/ML 100 ML (OMNIPAQUE 350) VIAL IV ONE (12:15)
--- NOTE | 2021-12-29 12:20 | Diagnostic Imaging Report ---
INDICATION: Abdominal pain. COMPARISON: 03/30/2019. FINDINGS: The lungs appear clear without focal airspace opacities or consolidation. There are no findings of an effusion. There is no evidence of a pneumothorax. Heart size and mediastinal contours appear appropriate. Pulmonary vascularity appears within normal limits. There is no acute or suspicious osseous abnormality demonstrated. Patient's prior left clavicular fracture now appears healed. IMPRESSION: No radiographic evidence of an acute cardiopulmonary process. Dictated by: Dictated on workstation # [id number]
--- NOTE | 2021-12-29 12:34 | Diagnostic Imaging Report ---
PROCEDURE: CT abdomen with contrast only. TECHNIQUE: Multiple contiguous axial images were obtained through the abdomen after the administration of intravenous contrast. Auto Exposure Controls were utilized during the CT exam to meet ALARA standards for radiation dose reduction. INDICATION: Abdominal pain and vomiting. COMPARISON: April 09, 2019. FINDINGS: The lung bases are clear without pneumonia or edema. There is no pleural effusion. The liver demonstrates no evidence of a focal intrahepatic abnormality. The gallbladder is nondistended. There is no radiodense stone or biliary dilatation. The portal veins are patent. The pancreas is unremarkable. The spleen is normal in size. There is no adrenal mass. The kidneys enhance normally and are nonobstructed. The stomach is nondistended. There is, however, marked abnormal fluid distention of multiple loops of proximal small bowel. The distal loops of small bowel appear to be nondistended with an apparent transition point occurring near some apparent prior anastomotic sutures within the right hemiabdomen. The colon is decompressed. There are no findings of pneumatosis. There is no portal venous gas. There is no free air or evidence of free fluid. There is no evidence of abscess. IMPRESSION: 1. Abnormally dilated fluid-filled loops of small bowel with a transition appearing to occur at the level of prior enteric sutures within the right hemiabdomen. The distal small bowel and the visualized portions the colon are decompressed. 2. No free air, free fluid, or abscess is evident. 3. No findings of pneumatosis or portal venous gas. Dictated by: Dictated on workstation # [id number]
[2021-12-29] MEDS ORDERED: ACHD5005 PO (14:05)
[2021-12-29] MEDS ORDERED: ONDA4TAB11 PO (14:05)
[2021-12-29 15:10] VITALS: BP 112/66
== END 2021-12-29 15:10 | disposition home or self-care (01) ==
LOC: EDUNIT# 10:51 → ER 10:53
DX: K56.609 Unspecified intestinal obstruction, unspecified as to partial versus complete obstruction (principal); Z28.310 Unvaccinated for COVID-19
CPT/HCPCS: 36415; 71045; 74160; 80053; 83605; 83690; 85025; 85610; 85730; 87040

== ENCOUNTER 2022-10-24 15:29 | Observation (INO) | payer BC ==
[~2022-10-24] VITALS: Ht 167.7 cm; Wt 56.3 kg
[~2022-10-24 15:29] MED LIST changes: +ACHD5005 PO; +ONDA4TAB11 PO
[2022-10-24] MEDS ORDERED: fentaNYL INJ 100 MCG/2 ML AMP IVP STA (16:35)
[2022-10-24] MEDS ORDERED: NS IV 1000 ML 1,000 ML IV STA (16:35)
[2022-10-24 16:42] LABS: BASOPHILS % (AUTO) 0 % (0-10); EOSINOPHILS % (AUTO) 0 % (0-10); HEMATOCRIT 46 % (40-54); HEMOGLOBIN 15.6 g/dL (13.3-17.7); LYMPHOCYTES # (AUTO) 0.5 X 10^3 (1.0-4.0); LYMPHOCYTES % (AUTO) 6 % (12-44); MEAN CORPUSCULAR HEMOGLOBIN 27 pg (25-34); MEAN CORPUSCULAR HGB CONC 34 g/dL (32-36); MEAN CORPUSCULAR VOLUME 80 fL (80-99); MONOCYTES # (AUTO) 0.3 X 10^3 (0.0-1.0); MONOCYTES % (AUTO) 3 % (0-12); NEUTROPHILS % (AUTO) 90 % (42-75); PLATELET COUNT 168 10^3/uL (130-400); WHITE BLOOD COUNT 8.9 10^3/uL (4.3-11.0)
[2022-10-24] MEDS ORDERED: ONDANSETRON 4 MG/2 ML (SDV) Z0FRAN IVP ONE (16:45)
[2022-10-24 16:47] LABS: ALBUMIN 5.3 GM/DL (3.2-4.5); CHLORIDE 101 MMOL/L (98-107); POTASSIUM 4.6 MMOL/L (3.6-5.0); SODIUM 138 MMOL/L (135-145)
[2022-10-24 16:48] LABS: AMYLASE 101 U/L (25-125); CALCIUM 9.6 MG/DL (8.5-10.1)
--- NOTE | 2022-10-24 16:48 | ED Abdominal Pain ---
General Chief Complaint: Abdominal/GI Problems Stated Complaint: ABD PAIN/NAUSEA Nursing Triage Note: PT TO TRIAGE VIA W/C WITH C/O ABD PAIN, N/V STARTING THIS MORNING. Source of Information: Patient Exam Limitations: No Limitations History of Present Illness Date Seen by Provider: Oct 24, 2022 Time Seen by Provider: 15:38 Initial Comments 22-year-old male presents to the ED with complaints of upper abdominal pain starting at 8 AM this morning. He also reports nausea and vomiting, states he has vomited approximately 4 times. Reports feeling the chills at times. Denies chest pain, shortness of air, diarrhea, dysuria. Last bowel movement was yesterday and normal. He had a small bowel resection due to bowel perforation from a trauma in March 2019. He denies any other past medical history, does not take any medications regularly. He reports he took a Zofran and hydrocodone this morning which she had leftover from his surgery. States that this did not help. Allergies and Home Medications Allergies Coded Allergies: No Known Drug Allergies (Unverified , 03/28/19) Patient Home Medication List Home Medication List Reviewed: Yes No Active Prescriptions or Reported Meds Review of Systems Review of Systems Constitutional: see HPI Past Crbwfxs-Exxajt-Xcgprx Hx Patient Social History Tobacco Use?: No Smoking Status: Never a Smoker Smokeless Tobacco Frequency: Never a User Use of E-Cig and/or Vaping dev: No Use of E-Cig and/or Vaping Oleg: Never a User Substance use?: No Alcohol Use?: No Pt feels they are or have been: No Immunizations Up To Date Tetanus Booster (TDap): Less than 5yrs PED Vaccines UTD: Yes Seasonal Allergies Seasonal Allergies: No Past Medical History Surgery/Hospitalization HX: PMH:ABDOMINAL SX- BOWEL PERF Surgeries: Yes Abdominal Respiratory: Yes (small left apical pneumothorax) Cardiac: No Neurological: No Genitourinary: No Gastrointestinal: No Musculoskeletal: Yes (left clavicular fracture) Endocrine: No HEENT: No Cancer: No Psychosocial: No Integumentary: No Family Medical History No Pertinent Family Hx Physical Exam Vital Signs Vital Signs - First Documented 10/24/22 15:50 Temp 36.7 Pulse 75 Resp 15 B/P (MAP) 111/73 (86) Capillary Refill : Less Than 3 Seconds Height/Weight/BMI Height: '" Weight: lbs. oz. kg; 20.00 BMI Method: General Appearance: WD/WN, mild distress Neck: supple, normal inspection Respiratory: lungs clear, normal breath sounds, no respiratory distress, no accessory muscle use Cardiovascular: regular rate, rhythm, no edema, no gallop, no JVD, no murmur Gastrointestinal: normal bowel sounds, soft, tenderness (Bilateral upper and epigastric regions) Extremities: normal range of motion, normal inspection Neurologic/Psychiatric: alert, normal mood/affect Skin: normal color, warm/dry Progress/Results/Core Measures Results/Orders Lab Results Laboratory Tests Test 10/24/22 16:30 10/24/22 16:47 Range/Units White Blood Count 8.9 4.3-11.0 10^3/uL Red Blood Count 5.81 H 4.30-5.52 10^6/uL Hemoglobin 15.6 13.3-17.7 g/dL Hematocrit 46 40-54 % Mean Corpuscular Volume 80 80-99 fL Mean Corpuscular Hemoglobin 27 25-34 pg Mean Corpuscular Hemoglobin Concent 34 32-36 g/dL Red Cell Distribution Width 12.8 10.0-14.5 % Platelet Count 168 130-400 10^3/uL Mean Platelet Volume 12.0 9.0-12.2 fL Immature Granulocyte % (Auto) 0 % Neutrophils (%) (Auto) 90 H 42-75 % Lymphocytes (%) (Auto) 6 L 12-44 % Monocytes (%) (Auto) 3 0-12 % Eosinophils (%) (Auto) 0 0-10 % Basophils (%) (Auto) 0 0-10 % Neutrophils # (Auto) 8.0 H 1.8-7.8 X 10^3 Lymphocytes # (Auto) 0.5 L 1.0-4.0 X 10^3 Monocytes # (Auto) 0.3 0.0-1.0 X 10^3 Eosinophils # (Auto) 0.0 0.0-0.3 10^3/uL Basophils # (Auto) 0.0 0.0-0.1 10^3/uL Immature Granulocyte # (Auto) 0.0 0.0-0.1 10^3/uL Neutrophils % (Manual) 82 % Lymphocytes % (Manual) 6 % Monocytes % (Manual) 2 % Band Neutrophils 10 % Platelet Estimate NORMAL Blood Morphology Comment NORMAL Sodium Level 138 135-145 MMOL/L Potassium Level 4.6 3.6-5.0 MMOL/L Chloride Level 101 98-107 MMOL/L Carbon Dioxide Level 23 21-32 MMOL/L Anion Gap 14 5-14 MMOL/L Blood Urea Nitrogen 15 7-18 MG/DL Creatinine 0.95 0.60-1.30 MG/DL Estimat Glomerular Filtration Rate 115 BUN/Creatinine Ratio 16 Glucose Level 165 H 70-105 MG/DL Calcium Level 9.6 8.5-10.1 MG/DL Corrected Calcium 8.5-10.1 MG/DL Total Bilirubin 0.5 0.1-1.0 MG/DL Aspartate Amino Transf (AST/SGOT) 18 5-34 U/L Alanine Aminotransferase (ALT/SGPT) 42 0-55 U/L Alkaline Phosphatase 75 40-136 U/L Total Protein 8.3 H 6.4-8.2 GM/DL Albumin 5.3 H 3.2-4.5 GM/DL Amylase Level 101 25-125 U/L Lipase 20 8-78 U/L Urine Color YELLOW Urine Clarity CLEAR Urine pH >=9.0 5-9 Urine Specific [place] 1.010 L 1.016-1.022 Urine Protein 2+ H NEGATIVE Urine Glucose (UA) NEGATIVE NEGATIVE Urine Ketones NEGATIVE NEGATIVE Urine Nitrite NEGATIVE NEGATIVE Urine Bilirubin NEGATIVE NEGATIVE Urine Urobilinogen 0.2 < = 1.0 MG/DL Urine Leukocyte Esterase NEGATIVE NEGATIVE Urine RBC (Auto) NEGATIVE NEGATIVE Urine RBC NONE /HPF Urine WBC NONE /HPF Urine Squamous Epithelial Cells NONE /HPF Urine Crystals PRESENT H /LPF Urine Amorphous Sediment MOD LAZARO PHOSPHATE H /LPF Urine Bacteria FEW H /HPF Urine Casts NONE /LPF Urine Mucus LARGE H /LPF Urine Culture Indicated NO My Orders Orders - JUDITH SANTOS APRN Ua Culture If Indicated (10/24/22 15:38) Fentanyl Inj (Sublimaze Injection) (10/24/22 16:35) Ondansetron Injection (Zofran Injectio (10/24/22 16:45) Ns Iv 1000 Ml (Sodium Chloride 0.9%) (10/24/22 16:35) Ed Iv/Invasive Line Start (10/24/22 16:35) Comprehensive Metabolic Panel (10/24/22 16:35) Lipase (10/24/22 16:35) Amylase (10/24/22 16:35) Cbc With Automated Diff (10/24/22 16:35) Ct Abdomen/Pelvis W (10/24/22 16:35) Manual Differential (10/24/22 16:30) Iohexol Injection (Omnipaque 350 Mg/Ml 1 (10/24/22 17:00) Ns (Ivpb) (Sodium Chloride 0.9% Ivpb Bag (10/24/22 17:00) Ed Admission (Communication) (10/24/22 17:55) Vital Signs/I&O 10/24/22 15:50 Temp 36.7 Pulse 75 Resp 15 B/P (MAP) 111/73 (86) Blood Pressure Mean: 86 Progress Progress Note : Time: 16:47 Progress Note Patient seen and evaluated, resting in bed, mild distress. Based on exam and symptoms, work-up initially including CBC, CMP, and with, lipase, UA, CT abdomen pelvis. IV fluids, Zofran, fentanyl ordered. [address] reviewed. CBC shows elevated RBC 5.81, elevated neutrophil percentage 90. CMP shows elevated glucose 165. Amylase normal, lipase normal. UA shows 2+ protein, negative for infection. CT shows mid small bowel obstruction. I called Dr. Bush, surgery, he recommends I call Dr. Correia, surgery, since Dr. Correia performed patient's previous abdominal surgery. Dr. Correia called, he will admit patient. He would like me to place bridge orders. He does not want an NG. He recommends pain medications IV and oral, IV fluids, and two-view abdomen x-ray for the morning. Results and recommendations discussed with patient. Patient agrees to admission. Diagnostic Imaging Diagonstic Imaging: CT Plain Films/CT/US/NM/MRI: abdomen, pelvis Comments [facility], [facility]. [place], [place] NAME: VIOLETNAM [facility] REC#: [id number] PT STATUS: REG ER : 2000 PHYSICIAN: JUDITH SANTOS APRN ADMIT DATE: 10/24/22/ER Signed Date of Exam:10/24/22 CT ABDOMEN/PELVIS W PROCEDURE: CT abdomen and pelvis with contrast. TECHNIQUE: Multiple contiguous axial images were obtained through the abdomen and pelvis after administration of intravenous contrast. Auto Exposure Controls were utilized during the CT exam to meet ALARA standards for radiation dose reduction. All CT scans use one or more of the following dose optimizing techniques: automated exposure control, MA and/or KvP adjustment based on patient size and exam type or iterative reconstruction. INDICATION: Abdominal pain. FINDINGS: The lung bases are clear. Liver appears normal. Gallbladder appears normal. Portal vein is patent. Common duct is not dilated. Pancreas appears normal. Spleen is not enlarged. Kidneys and adrenals appear normal. Aorta and IVC appear normal. The proximal small bowel is dilated and contains multiple air-fluid levels. The distal small bowel is decompressed.. The transition zone may be related to an anastomotic suture line in the right lower abdomen. Colon is unremarkable. Urinary bladder is normal. Prostate is not enlarged. There is no intraperitoneal free air or free fluid. There is no evidence for appendicitis. IMPRESSION: Mid small bowel obstruction. Dictated by: Dictated on workstation # [id number] Dict: 10/24/221717 Trans: 10/24/22 [address] [facility] [id number] Interpreted by: STEPHAN NOEL MD Electronically signed by: STEPHAN NOEL MD 10/24/221732 Departure Impression Primary Impression: Bowel obstruction Disposition: ADMITTED INPATIENT Condition: Stable Admissions Decision to Admit Reason: Admit from ER (General) Decision to Admit/Date: Oct 24, 2022 Time/Decision to Admit Time: 17:41 Departure-Patient Inst. Referrals: NO,LOCAL PHYSICIAN (PCP/Family) Primary Care Physician Scripts No Active Prescriptions or Reported Meds JUDITH SANTOS APRN Oct 24, 2022 16:47
[2022-10-24 16:49] LABS: GLUCOSE 165 MG/DL (70-105)
[2022-10-24 16:50] LABS: TOTAL PROTEIN 8.3 GM/DL (6.4-8.2)
[2022-10-24 16:51] LABS: BILIRUBIN,TOTAL 0.5 MG/DL (0.1-1.0); CARBON DIOXIDE 23 MMOL/L (21-32)
[2022-10-24 16:53] LABS: ALKALINE PHOSPHATASE 75 U/L (40-136); CREATININE SERUM 0.95 MG/DL (0.60-1.30); GFR ESTIMATED 115
[2022-10-24 16:54] LABS: BILIRUBIN,URINE NEGATIVE (NEGATIVE); CLARITY,URINE CLEAR; COLOR,URINE YELLOW; GLUCOSE, URINE (UA) NEGATIVE (NEGATIVE); KETONES,URINE NEGATIVE (NEGATIVE); LEUKOCYTE ESTERASE ,URINE NEGATIVE (NEGATIVE); NITRITE,URINE NEGATIVE (NEGATIVE); PH,URINE >=9.0 (5-9); PROTEIN,URINE 2+ (NEGATIVE)
[2022-10-24 16:54] LABS: BUN/CREATININE RATIO 16
[2022-10-24 16:56] LABS: ALANINE AMINOTRANSFERASE 42 U/L (0-55)
[2022-10-24 16:57] LABS: LIPASE 20 U/L (8-78)
[2022-10-24] MEDS ORDERED: IOHEXOL 350 MG/ML 100 ML (OMNIPAQUE 350) VIAL IV ONE (17:00)
[2022-10-24] MEDS ORDERED: NS 100 ML (IVPB) BAG IV ONE (17:00)
[2022-10-24 17:06] LABS: AMORPHOUS SEDIMENT,UR MOD AMOR PHOSPHATE /LPF; BACTERIA,URINE FEW /HPF
[2022-10-24 17:15] LABS: BAND NEUTROPHILS 10 %; LYMPHOCYTES % (MANUAL) 6 %; MONOCYTES % (MANUAL) 2 %; NEUTROPHILS % (MANUAL) 82 %; PLATELET ESTIMATE NORMAL; RBC MORPH NORMAL
--- NOTE | 2022-10-24 17:23 | Diagnostic Imaging Report ---
PROCEDURE: CT abdomen and pelvis with contrast. TECHNIQUE: Multiple contiguous axial images were obtained through the abdomen and pelvis after administration of intravenous contrast. Auto Exposure Controls were utilized during the CT exam to meet ALARA standards for radiation dose reduction. All CT scans use one or more of the following dose optimizing techniques: automated exposure control, MA and/or KvP adjustment based on patient size and exam type or iterative reconstruction. INDICATION: Abdominal pain. FINDINGS: The lung bases are clear. Liver appears normal. Gallbladder appears normal. Portal vein is patent. Common duct is not dilated. Pancreas appears normal. Spleen is not enlarged. Kidneys and adrenals appear normal. Aorta and IVC appear normal. The proximal small bowel is dilated and contains multiple air-fluid levels. The distal small bowel is decompressed.. The transition zone may be related to an anastomotic suture line in the right lower abdomen. Colon is unremarkable. Urinary bladder is normal. Prostate is not enlarged. There is no intraperitoneal free air or free fluid. There is no evidence for appendicitis. IMPRESSION: Mid small bowel obstruction. Dictated by: Dictated on workstation # [id number]
[2022-10-24 19:37] VITALS: BP 116/58
[2022-10-24] MEDS ORDERED: fentaNYL INJ 100 MCG/2 ML AMP IV PRN (19:45)
[2022-10-24] MEDS ORDERED: PROMETHAZINE INJ 25 MG/ML (PHENERGAN) AMP IV PRN (19:45)
[2022-10-24] MEDS ORDERED: HYDROcodone/APAP 7.5 MG/325 MG (LORTAB, LORCET PLUS) TABLET PO PRN (19:45)
[2022-10-24] MEDS ORDERED: ONDANSETRON 4 MG/2 ML (SDV) Z0FRAN IV PRN (19:45)
[2022-10-24] MEDS: NS IV 1000 ML 1,000 ML IV SCH (19:51)
[2022-10-24 23:20] VITALS: BP 115/69
[2022-10-25 03:48] VITALS: BP 102/51
[2022-10-25] MEDS: NS IV 1000 ML 1,000 ML IV SCH ×2 (03:48→11:58)
[2022-10-25 06:31] LABS: BASOPHILS % (AUTO) 0 % (0-10); EOSINOPHILS # (AUTO) 0.1 10^3/uL (0.0-0.3); EOSINOPHILS % (AUTO) 1 % (0-10); HEMATOCRIT 39 % (40-54); HEMOGLOBIN 12.8 g/dL (13.3-17.7); LYMPHOCYTES # (AUTO) 1.9 10^3/uL (1.0-4.0); LYMPHOCYTES % (AUTO) 23 % (12-44); MEAN CORPUSCULAR HEMOGLOBIN 27 pg (25-34); MEAN CORPUSCULAR HGB CONC 33 g/dL (32-36); MEAN CORPUSCULAR VOLUME 81 fL (80-99); MEAN PLATELET VOLUME 11.9 fL (9.0-12.2); MONOCYTES # (AUTO) 0.5 10^3/uL (0.0-1.0); MONOCYTES % (AUTO) 7 % (0-12); NEUTROPHILS # (AUTO) 5.4 10^3/uL (1.8-7.8); NEUTROPHILS % (AUTO) 68 % (42-75); PLATELET COUNT 132 10^3/uL (130-400); WHITE BLOOD COUNT 7.9 10^3/uL (4.3-11.0)
[2022-10-25 06:37] LABS: POTASSIUM 3.6 MMOL/L (3.6-5.0)
[2022-10-25 06:38] LABS: CALCIUM 8.5 MG/DL (8.5-10.1)
[2022-10-25 06:43] LABS: CREATININE SERUM 0.77 MG/DL (0.60-1.30)
[2022-10-25 08:00] VITALS: BP 100/62
--- NOTE | 2022-10-25 08:07 | Diagnostic Imaging Report ---
CLINICAL INDICATION: Patient with small bowel obstruction. Followup exam. EXAM: X-ray of the abdomen with multiple supine and upright views. COMPARISON: CT scan abdomen and pelvis dated 10/24/2022. FINDINGS: There is a nonobstructed bowel gas pattern. There is no evidence of abdominal free air. The previously seen dilated air-filled loops of small bowel overlying the abdomen has predominantly resolved. There is a small air-filled loop of bowel overlying the mid abdominal region. There are surgical sutures seen overlying the mid abdominal region. There is a small to moderate amount of stool involving the right colon, transverse colon and rectosigmoid region. There are no focal calcifications overlying the expected regions/ pathways of both kidneys, ureters, and bladder regions. The visualized bones and extra abdominal soft tissues are unremarkable. IMPRESSION: There is resolving dilation of the previously seen small bowel. There is small amount of air distended intestine overlying the mid abdominal region. Dictated by: Dictated on workstation # [id number]
--- NOTE | 2022-10-25 12:13 | HISTORY AND PHYSICAL ---
HPI: The patient is a 22-year-old male known to us. He presented to the Emergency Department with a 1-day history of crampy abdominal pain and nausea and vomiting. He states that he had vomited undigested food as well as bilious material, no hematemesis, no coffee-ground emesis. He states he does not report any diarrhea as well as no red blood per rectum, nor any dark tarry stools. He was involved in a trauma 03/2019 and did undergo a small bowel resection as well as a primary anastomosis. Since being admitted and placed on bowel rest and IV fluids, he has felt better and has had some bowel function with passing of flatus. His abdominal x-ray also looks improved since yesterday's CT scan of the abdomen and pelvis. PAST MEDICAL HISTORY: None. PAST SURGERIES: Exploratory laparotomy and small bowel resection 03/2019. ALLERGIES: NO KNOWN DRUG ALLERGIES. MEDICATIONS: Zofran p.r.n. SOCIAL HISTORY: Negative smoke, negative alcohol. FAMILY HISTORY: Noncontributory. VITAL SIGNS: Temperature 36.6, blood pressure 100/62, pulse 49, respirations 17, pulse ox 99% on room air. REVIEW OF SYSTEMS: Well-nourished male. Currently in no acute distress. He is not experiencing any shortness of breath or difficulty breathing. No chest pain, palpitations, diaphoresis. He presented with nausea and vomiting as well as crampy abdominal pain. He states that this is improved and he is tolerating clear liquids without any difficulty. No hematemesis, no coffee-ground emesis. No previous diarrhea, no red blood per rectum, no dark tarry stools. No fever, chills, no recent inadvertent weight loss. All other review of systems negative. PHYSICAL EXAMINATION: CHEST: Clear. Good breath sounds bilaterally. HEART: Regular. No murmurs. EXTREMITIES: No lower extremity edema. Negative Homans sign. HEENT: No scleral icterus. No cervical lymphadenopathy. ABDOMEN: Soft, nondistended. There is mild discomfort upon deep palpation. No peritoneal signs. No hernias. SKIN: Warm, dry. LABORATORY DATA: WBC 7.9, hemoglobin 12.8, hematocrit 39, platelets 132. BUN 10, creatinine 0.77. ASSESSMENT AND PLAN: A 22-year-old male with partial small-bowel obstruction likely secondary to adhesion tissue from his previous surgery. At this time, with conservative management with bowel rest and IV fluids, it appears that he is improving. Chest x-ray as well as CT scan did show that he does have significant amount of stool in the colon and we will recommend taking stool softeners or laxatives. We will slowly advance his diet and once he is tolerating liquids as well as some solids and does have some bowel function, we will discharge him home. Job ID: [id number] DocumentID: [id number] Dictated Date: 10/25/2022 11:21:44 Refrigeration Service Inspector Date: 10/25/2022 12:10:00 Dictated By: PETE CHEEMA MD
[2022-10-25 12:32] VITALS: BP 91/47
[2022-10-25 15:36] VITALS: BP 118/62
[2022-10-25 17:38] VITALS: BP 118/62
[2022-10-25] MEDS ORDERED: polyethylene glycoL POWDER 17 GM (MIRALAX) PACK PO SCH (21:00)
--- NOTE | 2022-10-30 11:04 | Physician Query-Final Dx ---
Dionna Tena 10/30/22 1104: Final Diagnosis Give Final Diagnosis Please give Final Diagnosis EPTE CHEEMA MD 10/30/22 1256: Final Diagnosis Give Final Diagnosis ileus, constipation Dionna Tena Oct 30, 2022 11:04 PETE CHEEMA MD Oct 30, 2022 12:56
== END 2022-10-25 17:40 | disposition home or self-care (01) ==
LOC: EDUNIT# 15:29 → ER 15:31 → UNDOADMOB 19:12 → 4TH 19:12 → UNDODISOB 10-25 17:40
PROVIDERS: ADMIT Surgery; ATTEND Surgery
DX: K56.600 Partial intestinal obstruction, unspecified as to cause (principal); Z90.49 Acquired absence of other specified parts of digestive tract
CPT/HCPCS: 36415; 74019; 74177; 80048; 80053; 81000; 82150; 83690; 85007; 85025; 85027; 96361; 96375; 96376; G0378